=== PATIENT | female | born 1945 | race Caucasian/White ===

== ENCOUNTER 2018-11-13 10:57 | Emergency (ER) | payer SELFPAY ==
[~2018-11-13] VITALS: Ht 162.6 cm; Wt 68.2 kg
[2018-11-13] MEDS ORDERED: ACETAMINOPHEN 500 MG TABLET PO ONE (13:15)
[2018-11-13 15:08] VITALS: BP 127/62
== END 2018-11-13 15:31 | disposition home or self-care (01) ==
LOC: EMS 11:04
DX: M17.12 Unilateral primary osteoarthritis, left knee (principal); M25.531 Pain in right wrist; V49.40XA Driver injured in collision with unspecified motor vehicles in traffic accident, initial encounter; Y93.89 Activity, other specified; Y92.89 Other specified places as the place of occurrence of the external cause; Y99.8 Other external cause status
CPT/HCPCS: 73502